=== PATIENT | female | born 1990 | race Caucasian/White ===

== ENCOUNTER → 2017-10-26 | Outpatient (CLI) | payer BC ==
[~2017-10-26] MED LIST: FERR1TAB23; FRRS300 PO; MTR600X PO; OXYC-57 PO; PRENTAB26 PO; VALA500T60 PO
== END | disposition home or self-care (01) ==
LOC: C.LAB1850 17:13
PROVIDERS: ATTEND Obstetrics & Gynecology
DX: Z34.02 Encounter for supervision of normal first pregnancy, second trimester (principal); Z3A.00 Weeks of gestation of pregnancy not specified

== ENCOUNTER → 2018-01-25 | Outpatient (CLI) | payer BC ==
[2018-01-25 16:41] LABS: HEMATOCRIT 30.3 % (37-47); HEMOGLOBIN 10.2 g/dL (12.0-16.0)
== END | disposition home or self-care (01) ==
LOC: C.LAB1850 15:29
PROVIDERS: ATTEND Obstetrics & Gynecology
DX: Z34.03 Encounter for supervision of normal first pregnancy, third trimester (principal); Z3A.00 Weeks of gestation of pregnancy not specified

== ENCOUNTER → 2018-05-27 | Outpatient (CLI) | payer BC ==
[~2018-05-27] MED LIST changes: -FERR1TAB23; -VALA500T60 PO
== END | disposition home or self-care (01) ==
LOC: C.PAPS 13:52
PROVIDERS: ATTEND Obstetrics & Gynecology
DX: Z01.419 Encounter for gynecological examination (general) (routine) without abnormal findings (principal); R87.616 Satisfactory cervical smear but lacking transformation zone

== ENCOUNTER 2022-07-18 11:43 | Inpatient (IN) ==
[2022-07-18] MEDS ORDERED: KETOROLAC TROMETHAMINE 15 MG/ML VIAL IV STA (12:12)
[2022-07-18] MEDS ORDERED: ONDANSETRON INJ 2 MG/ML 2 ML VIAL IV STA ×2 (12:12→13:49)
[2022-07-18] MEDS ORDERED: SODIUM CHLORIDE 0.9% 1000ML 1,000 ML IV ONE (12:12)
[2022-07-18 12:39] LABS: Appearance Urine Clear (Clear); Bacteria Urine Automated Negative (Negative); Bilirubin Urine Negative (Negative); Blood Urine 2+ (Negative); Color Urine Yellow; Epithelial Cell Urine Auto >30 /lpf (0-5); Glucose Urine UA Negative (Negative); Ketones Urine Negative (Negative); Leukocyte Esterase Urine Negative (Negative); Nitrite Urine Negative (Negative); Protein Urine Negative (Negative); RBC Urine Automated 0-4 /hpf (0-4); Specific Gravity Urine 1.007 (1.000-1.030); Urobilinogen Urine Negative (Negative); pH Urine 5.5 (4.5-7.5)
[2022-07-18 12:42] LABS: Basophils # (auto) 0.07 K/uL (0-0.2); Basophils % (auto) 0.9 %; Eosinophils # (auto) 0.12 K/uL (0-0.50); Eosinophils % (auto) 1.6 %; Hematocrit (blood only) 33.7 % (34.1-44.9); Hemoglobin 11.5 g/dl (12.0-16.0); Immature Granulocytes # (auto) 0.02 K/uL (0.00-0.02); Immature Granulocytes % (auto) 0.3 %; Lymphocytes # (auto) 2.51 K/uL (1.2-3.4); Lymphocytes % (auto) 33.7 %; Mean Corpuscular Hemoglobin 30.2 pg (25.0-34.0); Mean Corpuscular Hgb Conc 34.1 g/dL (32.0-36.0); Mean Corpuscular Volume 88.5 fL (80.0-100.0); Mean Platelet Volume 12.2 fL (9.4-12.3); Monocytes # (auto) 0.52 K/uL (0.24-0.82); Neutrophils # (auto) 4.21 K/uL (1.4-6.5); Neutrophils % (auto) 56.5 %; Platelet Count 268 K/uL (130-400); RDW Coefficient of Variation 14.1 % (11.5-14.5); RDW Standard Deviation 45.5 fL (36.4-46.3); Red Blood Count 3.81 M/uL (3.93-5.22); White Blood Count 7.45 K/ul (4.8-10.8)
[2022-07-18 13:14] LABS: Albumin Globulin Ratio 1.6 (0.9-2); Albumin Level 4.4 gm/dl (3.4-5.0); BUN Creatinine Ratio 19.7 (10-20); Bilirubin,Total 0.4 mg/dl (0.2-1.0); Calcium 9.9 mg/dl (8.5-10.1); Creatinine Clr Calc Pharmacy 96.4 ml/min; Est GFR (African American) 128.8 ml/min; Est GFR (Non-African American) 111.1 ml/min; Globulin 2.7 gm/dl (2.5-4.0); Potassium 3.2 mmol/L (3.5-5.1); Total Protein 7.1 gm/dl (6.0-8.3)
--- NOTE | 2022-07-18 13:36 | XRay Report ---
XR abdomen 2V w PA chest HISTORY: 32 years-old Female lower abd pain hx kidney stones and ovarian cyst acute chest and abdomi nal COMPARISON: None TECHNIQUE: PA view the chest with erect and supine views of the abdomen FINDINGS: Cardiomediastinal and hilar silhouettes are within normal limits. No pneumothorax, pleural effusion, airspace consolidation or overt pulmonary edema. A catheter is projected over the left chest and abdo men. Bones appear grossly intact. Nonobstructive bowel gas pattern. No pneumatosis or pneumoperitoneum. Numerous subcentimeter radioden se foci project over the abdomen, likely within the GI tract. Indeterminate 8 mm radiodensity of the right abdomen is is noted projected over the mid to lower lumbar spine. On the supine view this is pr esent at the level of L3, the upright view this is present at the level of L4. IMPRESSION: 1. No acute processes of the chest. 2. Nonobstructive bowel gas pattern. 3. Numerous subcentimeter radiodense foci project of the abdomen likely within the GI tract. 4. Indeterminate 8 mm radiodensity of the right abdomen, also possible within the GI tract. A uretera l calculus is considered less likely. ACT 112: Negative or not required by law. The above report was generated using voice recognition software. It may contain grammatical, syntax o r spelling errors. Electronically signed by: Kody Land M.D. 07/18/2022 1:34 PM
[2022-07-18] MEDS ORDERED: MoRPHine SULFATE 4 MG/ML 1 ML CARP\\VIAL IV STA (13:49)
--- NOTE | 2022-07-18 14:12 | Ultrasound Report ---
US renal/blad retro comp HISTORY: 32 years-old Female lower abd pain hx kidney stones and ovarian cyst acute bilateral flank pain COMPARISON: Pelvic ultrasound of same day TECHNIQUE: Multiple real-time sonographic images of the kidneys and urinary bladder were obtained ass essing grayscale appearance and color flow FINDINGS: The right kidney measures 10.7 cm in length and demonstrates mild hydroureteronephrosis. There is a 9 mm calculus present within the proximal right ureter. Mild associated perinephric and periureteral e laura. 1 cm calculus in the inferior pole right kidney. Left kidney measures 10.1 cm in length and is unremarkable without renal calculi, hydronephrosis or s uspicious mass lesion. Unremarkable urinary bladder. Ureteral jets are not identified. IMPRESSION: 1. Mild right-sided hydroureteronephrosis secondary to an obstructing 9 mm calculus of the proximal r ight ureter. This correlates with the right abdominal calcification described on the radiographs of . 2. Right nephrolithiasis. ACT 112: Negative or not required by law. The above report was generated using voice recognition software. It may contain grammatical, syntax o r spelling errors. Electronically signed by: Kody Land M.D. 07/18/2022 2:09 PM
--- NOTE | 2022-07-18 14:13 | Ultrasound Report ---
US pelvic complete HISTORY: 32 years-old Female lower abd pain hx kidney stones and ovarian cyst acute lower abdominal pain COMPARISON: Renal ultrasound of same day TECHNIQUE: Multiple real-time sonographic images of the deep pelvic structures were obtained transabd ominally assessing grayscale appearance, color and spectral flow FINDINGS: Anteflexed uterus measures 8.2 x 4.0 x 4.6 cm and is unremarkable. Endometrium measures 9 mm in thick ness. No myometrial mass lesion identified. The left ovary measures 2.5 x 1.8 x 1.9 cm. The right ovary measures 3.7 x 2.5 x 1.5 cm. No adnexal m ass identified. Arterial inflow and venous outflow is documented to the bilateral ovaries. No signifi cant free pelvic fluid. IMPRESSION: Unremarkable pelvic ultrasound. ACT 112: Negative or not required by law. The above report was generated using voice recognition software. It may contain grammatical, syntax o r spelling errors. Electronically signed by: Kody Land M.D. 07/18/2022 2:12 PM
--- NOTE | 2022-07-18 15:29 | Emergency Department Note ---
History of Present Illness General Chief Complaint: Abdominal Pain Stated Complaint: SEVERE ABDOMINAL PAIN Time Seen by Provider: 07/18/22 12:06 History of Present Illness Provider Complaint: abdominal pain Onset (ago): 1 hour(s) Location: LLQ and RLQ Severity: moderate Maximum Pain Intensity: 8 Current Pain Intensity: 8 Quality: + stabbing, + aching, + sharp and + dull Relieved By: + nothing Exacerbated By: + nothing Context: + history of similar episodes (History of kidney stones and ovarian cysts); no foreign travel, no possible food poisoning, no sick contacts, no recent antibiotic use, no recent surgery/procedure or no recent injury Associated Symptoms: + nausea and + vomiting; no diarrhea, no fever, no chills, no constipation, no dysuria, no hematemesis, no hematochezia, no melena, no hematuria, no anorexia, no syncope, no headache, no neck pain, no chest pain, no weakness and no numbness Home Medications Medication Instructions Recorded Confirmed Type fluoxetine 20 mg capsule (Prozac) 20 mg PO DAILY 10/24/20 07/18/22 History rizatriptan 10 mg tablet See Rx Instructions PO .COMPLEX #9 01/22/21 07/18/22 Rx tabs Allergies Allergy/AdvReac Type Severity Reaction Status Date / Time No Known Allergies Allergy Verified 07/18/22 13:13 Past Med/Surg History Medical History Migraine headache Surgical History H/O ovarian cystectomy S/P wisdom tooth extraction Family History Father Stroke Hyperlipidemia Nephrolithiasis Grandfather (Paternal) Stroke Grandmother (Maternal) No problems noted. Grandmother (Paternal) Cancer Hyperlipidemia Social History Smoking Status: Never smoker Feels Safe at Home: Yes Review of Systems A total of 10 systems reviewed and were otherwise negative Physical Exam Vital Signs: Vital Signs - 24 hr 07/18/22 11:59 07/18/22 13:40 Temperature 36.9 C Temperature Source Temporal Artery Sc an Pulse Rate 86 Pulse Rate [Left F theodora] 77 Respiratory Rate 18 18 Respiratory Effort / Characteristics Non-Labored Sponta neous Respiratory Depth Normal Blood Pressure 118/69 Blood Pressure [Ri ght Arm] 122/60 Blood Pressure Josselin n 85 Blood Pressure Josselin n [Right Arm] 80 Blood Pressure Pos ition Sitting Pulse Oximetry 97 98 Oxygen Delivery Me thod Room Air Sepsis Recent Feve r Within 48 Hours No Sepsis New/Unexpla ined Change in Men elayne Status N/A Sepsis Action Take n by Nursing No Action Required Physical Exam: Physical Exam GENERAL: She is oriented to person, place, and time. She appears well-developed and well-nourished. She does not appear distressed. HENT: Exam performed. -Head: Normocephalic and atraumatic. -Right Ear: External ear normal. No mastoid tenderness. -Left Ear: External ear normal. No mastoid tenderness. -Mouth/Throat: The oropharynx is clear and moist. No trismus in the jaw. No dental abscesses or uvula swelling. No oropharyngeal exudate or tonsillar absce sses. EYES: Conjunctivae and EOM are normal. Pupils are equal, round, and reactive to light. Right eye exhibits no discharge. Left eye exhibits no discharge. No scleral icterus. NECK: Normal range of motion. Neck supple. No JVD present. No spinous process tenderness present. No carotid bruit present. No rigidity. No tracheal deviation and normal range of motion present. No Brudzinski's sign and no Kernig's sign noted. CV: Normal rate, regular rhythm, normal heart sounds and intact distal pulses. There is no peripheral edema. Palpable radial pulses bue. PULM/CHEST: Effort normal and breath sounds normal. No respiratory distress. No stridor. She has no wheezes. She has no rales. -Chest Wall: She exhibits no tenderness. ABD: The abdomen is soft. Bowel sounds are normal. She has no distension. No mass is present. There is tenderness to palpation of the right lower quadrant and left lower quadrant. There is no rebound, no guarding, no Allen's sign. Rovsig negative MUSC/SKEL: Normal range of motion. There is no peripheral edema, tenderness or deformity. LYMPH: No cervical adenopathy. NEURO: She is alert and oriented to person, place, and time. She has normal strength. No cranial nerve deficit or sensory deficit. Coordination and gait normal. GCS eye subscore is 4. GCS verbal subscore is 5. GCS motor subscore is 6. Cerebellar tests wnl. SKIN: Skin is warm and dry. She is not diaphoretic. PSYCH: She has a normal mood and affect. Behavior is normal. Judgment and thought content normal. Course Course 1206: The patient was evaluated in room C3. A complete history and physical exam was performed Cardiac monitoring: An order was placed for continuous cardiac monitoring. The monitor shows a rate of 80 with sinus rhythm 1430: Vital signs stable. Labs within normal limits. Imaging shows a large 9 mm kidney stone with hydronephrosis. [facility]. Administered Medications Discontinued Medications Sodium Chloride (Nss 1000ml) 1,000 mls @ 999 mls/hr IV .Q1H1M ONE Stop: 07/18/22 13:12 Last Admin: 07/18/22 12:23 Dose: 999 mls/hr Documented By: PATRICIA Ketorolac Tromethamine (Ketorolac Tromethamine 15 Mg/Ml Vial) 15 mg IV NOW STA Stop: 07/18/22 12:13 Last Admin: 07/18/22 12:25 Dose: 15 mg Documented By: PATRICIA Morphine Sulfate (Morphine Sulfate 4 Mg/Ml 1 Ml Carp\Vial) 4 mg IV NOW STA Stop: 07/18/22 13:50 Last Admin: 07/18/22 14:03 Dose: 4 mg Documented By: PATRICIA Ondansetron HCl (Ondansetron Inj 2 Mg/Ml 2 Ml Vial) 4 mg IV NOW STA Stop: 07/18/22 12:13 Last Admin: 07/18/22 12:25 Dose: 4 mg Documented By: PATRICIA Ondansetron HCl (Ondansetron Inj 2 Mg/Ml 2 Ml Vial) 4 mg IV NOW STA Stop: 07/18/22 13:50 Last Admin: 07/18/22 14:03 Dose: 4 mg Documented By: PATRICIA Medical Decision Making Laboratory Data Result diagrams: 07/18/22 12:13 07/18/22 12:13 Lab Results 07/18/22 07/18/22 07/18/22 Range/Units 12:13 12:13 12:13 WBC 7.45 (4.8-10.8) K/ul RBC 3.81 L (3.93-5.22) M/uL Hgb 11.5 L (12.0-16.0) g/dl Hct 33.7 L (34.1-44.9) % MCV 88.5 (80.0-100.0) fL MCH 30.2 (25.0-34.0) pg MCHC 34.1 (32.0-36.0) g/dL RDW Std Deviation 45.5 (36.4-46.3) fL RDW Coeff of Marilee 14.1 (11.5-14.5) % Plt Count 268 (130-400) K/uL MPV 12.2 (9.4-12.3) fL Immature Gran % (Auto) 0.3 % Neut % (Auto) 56.5 % Lymph % (Auto) 33.7 % [place] % (Auto) 7.0 % Eos % (Auto) 1.6 % Baso % (Auto) 0.9 % Neut # (Auto) 4.21 (1.4-6.5) K/uL Lymph # (Auto) 2.51 (1.2-3.4) K/uL [place] # (Auto) 0.52 (0.24-0.82) K/uL Eos # (Auto) 0.12 (0-0.50) K/uL Baso # (Auto) 0.07 (0-0.2) K/uL Immature Gran # (Auto) 0.02 (0.00-0.02) K/uL Sodium 135 L (136-145) mmol/L Potassium 3.2 L (3.5-5.1) mmol/L Chloride 103 (98-107) mmol/L Carbon Dioxide 24 (21-32) mmol/L Anion Gap 8 (3-11) BUN 14 (6-23) mg/dl Creatinine 0.71 (0.6-1.2) mg/dl Est Cr Clr Drug Dosing 96.4 ml/min Est GFR ( Amer) 128.8 ml/min Est GFR (Non-Af Amer) 111.1 ml/min BUN/Creatinine Ratio 19.7 (10-20) Glucose 90 (70-99(Fasting)) mg/dl Calcium 9.9 (8.5-10.1) mg/dl Total Bilirubin 0.4 (0.2-1.0) mg/dl AST 14 (13-39) U/L ALT 11 (7-52) U/L Alkaline Phosphatase 48 (34-104) U/L Total Protein 7.1 (6.0-8.3) gm/dl Albumin 4.4 (3.4-5.0) gm/dl Globulin 2.7 (2.5-4.0) gm/dl Albumin/Globulin Ratio 1.6 (0.9-2) Lipase 32 (11-82) U/L Urine Color Yellow Urine Appearance Clear (Clear) Urine pH 5.5 (4.5-7.5) Ur Specific [place] 1.007 (1.000-1.030) Urine Protein Negative (Negative) Urine Glucose (UA) Negative (Negative) Urine Ketones Negative (Negative) Urine Blood 2+ H (Negative) Urine Nitrite Negative (Negative) Urine Bilirubin Negative (Negative) Urine Urobilinogen Negative (Negative) Ur Leukocyte Esterase Negative (Negative) Urine WBC (Auto) 1-5 (0-5) /hpf Urine RBC (Auto) 0-4 (0-4) /hpf U Hyaline Cast (Auto) 1-5 (0-5) /lpf U Epithel Cells (Auto) >30 H (0-5) /lpf Urine Bacteria (Auto) Negative (Negative) POC Ur Test (NEG) 07/18/22 Range/Units 12:13 WBC (4.8-10.8) K/ul RBC (3.93-5.22) M/uL Hgb (12.0-16.0) g/dl Hct (34.1-44.9) % MCV (80.0-100.0) fL MCH (25.0-34.0) pg MCHC (32.0-36.0) g/dL RDW Std Deviation (36.4-46.3) fL RDW Coeff of Mar[place] (11.5-14.5) % Plt Count (130-400) K/uL MPV (9.4-12.3) fL Immature Gran % (Auto) % Neut % (Auto) % Lymph % (Auto) % [place] % (Auto) % Eos % (Auto) % Baso % (Auto) % Neut # (Auto) (1.4-6.5) K/uL Lymph # (Auto) (1.2-3.4) K/uL [place] # (Auto) (0.24-0.82) K/uL Eos # (Auto) (0-0.50) K/uL Baso # (Auto) (0-0.2) K/uL Immature Gran # (Auto) (0.00-0.02) K/uL Sodium (136-145) mmol/L Potassium (3.5-5.1) mmol/L Chloride (98-107) mmol/L Carbon Dioxide (21-32) mmol/L Anion Gap (3-11) BUN (6-23) mg/dl Creatinine (0.6-1.2) mg/dl Est Cr Clr Drug Dosing ml/min Est GFR ( Amer) ml/min Est GFR (Non-Af Amer) ml/min BUN/Creatinine Ratio (10-20) Glucose (70-99(Fasting)) mg/dl Calcium (8.5-10.1) mg/dl Total Bilirubin (0.2-1.0) mg/dl AST (13-39) U/L ALT (7-52) U/L Alkaline Phosphatase (34-104) U/L Total Protein (6.0-8.3) gm/dl Albumin (3.4-5.0) gm/dl Globulin (2.5-4.0) gm/dl Albumin/Globulin Ratio (0.9-2) Lipase (11-82) U/L Urine Color Urine Appearance (Clear) Urine pH (4.5-7.5) Ur Specific [place] (1.000-1.030) Urine Protein (Negative) Urine Glucose (UA) (Negative) Urine Ketones (Negative) Urine Blood (Negative) Urine Nitrite (Negative) Urine Bilirubin (Negative) Urine Urobilinogen (Negative) Ur Leukocyte Esterase (Negative) Urine WBC (Auto) (0-5) /hpf Urine RBC (Auto) (0-4) /hpf U Hyaline Cast (Auto) (0-5) /lpf U Epithel Cells (Auto) (0-5) /lpf Urine Bacteria (Auto) (Negative) POC Ur Test NEG (NEG) MDM Narrative Vital signs stable. Labs within normal limits. Imaging shows a large 9 mm ki dney stone with hydronephrosis. Patient will be admitted to the [facility] hospitalist team for pain control and urology evaluation. Impression & Plan Hydronephrosis with renal and ureteral calculous obstruction Discharge Plan Visit Data Chief Complaint: Abdominal Pain Stated Complaint: SEVERE ABDOMINAL PAIN ED Provider: Evangelista Cottrell Discharge Problem: Hydronephrosis with renal and ureteral calculous obstruction Patient Disposition: Being Evaluated by Hospitalist Forms Stand Alone Forms: [facility] Prescriptions Prescriptions: No Action rizatriptan 10 mg tablet See Rx Instructions PO .COMPLEX Qty: 9 5RF Rx Instructions: take 1 tab at onset of headache; if no relief may repeat 1 tab after at least 2 hrs; max = 3 tabs/24 hr PO fluoxetine [Prozac] 20 mg capsule 20 mg PO DAILY Referrals Referrals: Allegra Jackson MD [Primary Care Provider] -
--- NOTE | 2022-07-18 16:04 | History & Physical Report ---
Date of Service July 18, 2022 Assessment & Plan (1) Renal calculus: (2) Hydroureteronephrosis: Plan: 32 yo Female with PMH of kidney stone that required lithotripsy in the past presented on admission with severe pain located in the right lower abdomen that radiated across/above the suprapubic area Renal U/S showed mild right-sided hydroureteronephrosis secondary to an obstructing 9 mm calculus of the proximal right ureter. Right nephrolithiasis. Creatinine and WBC within normal limit UA showed no sign for UTI Received IVF and Toradol in the ER Continue pain control with toradol and IVF Will add flomax Urology consult ( I notified the consultant technology urology about the consult) Will make NPO after midnight Hypokalemia Possible related to vomiting Potassium 3.2 on admission Will replaced Potassium Continue monitor BMP Migraine headache if headache occurs, will resume the Rizatriptan 10mg prn stable Anxiety/Depression Continue fluoxetine 20mg daily Stable DVT px SCD for now (possible urology procedure tomorrow ) Code status Full code History of Present Illness Primary Care Provider: Allegra Jackson MD 32 yo Female with PMH of migraine, kidney stone required procedure in the past, anxiety and depression present to ER with severe pain located in the right lower abdomen that radiated across and above the suprapubic area. Pt said that she was in her normal state when she developed severe abdominal pain around 1 pm. She said that she also have tenderness in the lower right border of her back. She said that she felt nauseated and vomiting today. She described the pain as a cramping feeling, constant and 6/10 intensity. She said that she received morphine in the ER that did not provide any relief, but the IV toradol helped. She said that she had kidney stone in the past that required lithotripsy in the past. Denies any fever, chills, diarrhea, dysuria, hematuria, palpitation, SOB and chest pain. Allergies Allergy/AdvReac Type Severity Reaction Status Date / Time No Known Allergies Allergy Verified 07/18/22 13:13 Home Medications Medication Instructions Recorded Confirmed Type fluoxetine 20 mg capsule (Prozac) 20 mg PO DAILY 10/24/20 07/18/22 History rizatriptan 10 mg tablet See Rx Instructions PO .COMPLEX #9 01/22/21 07/18/22 Rx tabs Past Med/Surg History Medical History Migraine headache Surgical History H/O ovarian cystectomy S/P wisdom tooth extraction Family History Father Stroke Hyperlipidemia Nephrolithiasis Grandfather (Paternal) Stroke Grandmother (Maternal) No problems noted. Grandmother (Paternal) Cancer Hyperlipidemia Social History Smoking Status: Never smoker Feels Safe at Home: Yes Review of Systems Review of Systems: All systems reviewed & are unremarkable except as noted in HPI & below Physical Exam Physical Exam: General- No acute distress Head- atraumatic Eyes- PERRL, EOMI, ENT- oropharynx clear Neck- supple, no JVD Lungs- clear to auscultation Heart- regular rhythm; no murmur Abdomen/Pelvis- + RL abdominal pain/ hypogastric pain, +R flank pain with palpation Extremities- no calf tenderness Neuro- alert, oriented x 3; PERRL, EOMI; no facial palsy; no dysarthria Skin- warm & dry Results & Data Results & Data ([facility]) Vital Signs (Past 12 Hours) Vital Signs Temp Pulse Pulse Resp BP BP Pulse Ox 07/18/22 13:40 77 18 122/60 98 07/18/22 11:59 36.9 C 86 18 118/69 97 O2 Del Method 07/18/22 13:40 07/18/22 11:59 Room Air Diagnostic Findings Laboratory Results WBC 7.45 K/ul (4.8-10.8) 07/18/22 12:13 RBC 3.81 M/uL (3.93-5.22) L 07/18/22 12:13 Hgb 11.5 g/dl (12.0-16.0) L 07/18/22 12:13 Hct 33.7 % (34.1-44.9) L 07/18/22 12:13 MCV 88.5 fL (80.0-100.0) 07/18/22 12:13 MCH 30.2 pg (25.0-34.0) 07/18/22 12:13 MCHC 34.1 g/dL (32.0-36.0) 07/18/22 12:13 RDW Std Deviation 45.5 fL (36.4-46.3) 07/18/22 12:13 RDW Coeff of Marilee 14.1 % (11.5-14.5) 07/18/22 12:13 Plt Count 268 K/uL (130-400) 07/18/22 12:13 MPV 12.2 fL (9.4-12.3) 07/18/22 12:13 Immature Gran % (Auto) 0.3 % 07/18/22 12:13 Neut % (Auto) 56.5 % 07/18/22 12:13 Lymph % (Auto) 33.7 % 07/18/22 12:13 Garden % (Auto) 7.0 % 07/18/22 12:13 Eos % (Auto) 1.6 % 07/18/22 12:13 Baso % (Auto) 0.9 % 07/18/22 12:13 Neut # (Auto) 4.21 K/uL (1.4-6.5) 07/18/22 12:13 Lymph # (Auto) 2.51 K/uL (1.2-3.4) 07/18/22 12:13 Garden # (Auto) 0.52 K/uL (0.24-0.82) 07/18/22 12:13 Eos # (Auto) 0.12 K/uL (0-0.50) 07/18/22 12:13 Baso # (Auto) 0.07 K/uL (0-0.2) 07/18/22 12:13 Immature Gran # (Auto) 0.02 K/uL (0.00-0.02) 07/18/22 12:13 Sodium 135 mmol/L (136-145) L 07/18/22 12:13 Potassium 3.2 mmol/L (3.5-5.1) L 07/18/22 12:13 Chloride 103 mmol/L (98-107) 07/18/22 12:13 Carbon Dioxide 24 mmol/L (21-32) 07/18/22 12:13 Anion Gap 8 (3-11) 07/18/22 12:13 BUN 14 mg/dl (6-23) 07/18/22 12:13 Creatinine 0.71 mg/dl (0.6-1.2) 07/18/22 12:13 Est Cr Clr Drug Dosing 96.4 ml/min 07/18/22 12:13 Est GFR ( Amer) 128.8 ml/min 07/18/22 12:13 Est GFR (Non-Af Amer) 111.1 ml/min 07/18/22 12:13 BUN/Creatinine Ratio 19.7 (10-20) 07/18/22 12:13 Glucose 90 mg/dl (70-99(Fasting)) 07/18/22 12:13 Calcium 9.9 mg/dl (8.5-10.1) 07/18/22 12:13 Total Bilirubin 0.4 mg/dl (0.2-1.0) 07/18/22 12:13 AST 14 U/L (13-39) 07/18/22 12:13 ALT 11 U/L (7-52) 07/18/22 12:13 Alkaline Phosphatase 48 U/L (34-104) 07/18/22 12:13 Total Protein 7.1 gm/dl (6.0-8.3) 07/18/22 12:13 Albumin 4.4 gm/dl (3.4-5.0) 07/18/22 12:13 Globulin 2.7 gm/dl (2.5-4.0) 07/18/22 12:13 Albumin/Globulin Ratio 1.6 (0.9-2) 07/18/22 12:13 Lipase 32 U/L (11-82) 07/18/22 12:13 Urine Color Yellow 07/18/22 12:13 Urine Appearance Clear (Clear) 07/18/22 12:13 Urine pH 5.5 (4.5-7.5) 07/18/22 12:13 Ur Specific [place] 1.007 (1.000-1.030) 07/18/22 12:13 Urine Protein Negative (Negative) 07/18/22 12:13 Urine Glucose (UA) Negative (Negative) 07/18/22 12:13 Urine Ketones Negative (Negative) 07/18/22 12:13 Urine Blood 2+ (Negative) H 07/18/22 12:13 Urine Nitrite Negative (Negative) 07/18/22 12:13 Urine Bilirubin Negative (Negative) 07/18/22 12:13 Urine Urobilinogen Negative (Negative) 07/18/22 12:13 Ur Leukocyte Esterase Negative (Negative) 07/18/22 12:13 Urine WBC (Auto) 1-5 /hpf (0-5) 07/18/22 12:13 Urine RBC (Auto) 0-4 /hpf (0-4) 07/18/22 12:13 U Hyaline Cast (Auto) 1-5 /lpf (0-5) 07/18/22 12:13 U Epithel Cells (Auto) >30 /lpf (0-5) H 07/18/22 12:13 Urine Bacteria (Auto) Negative (Negative) 07/18/22 12:13 POC Ur Test NEG (NEG) 07/18/22 12:13 SARS-CoV-2, RNA, NAAT NEGATIVE (NEGATIVE) 07/18/22 15:00 Impressions Chest/Abdomen X-ray 07/18/22 12:12 XR abdomen 2V w PA chest HISTORY: 32 years-old Female lower abd pain hx kidney stones and ovarian cyst acute chest and abdominal COMPARISON: None TECHNIQUE: PA view the chest with erect and supine views of the abdomen FINDINGS: Cardiomediastinal and hilar silhouettes are within normal limits. No pneumothorax, pleural effusion, airspace consolidation or overt pulmonary edema. A catheter is projected over the left chest and abdomen. Bones appear grossly intact. Nonobstructive bowel gas pattern. No pneumatosis or pneumoperitoneum. Numerous subcentimeter radiodense foci project over the abdomen, likely within the GI tract. Indeterminate 8 mm radiodensity of the right abdomen is is noted projected over the mid to lower lumbar spine. On the supine view this is present at the level of L3, the upright view this is present at the level of L4. IMPRESSION: 1. No acute processes of the chest. 2. Nonobstructive bowel gas pattern. 3. Numerous subcentimeter radiodense foci project of the abdomen likely within the GI tract. 4. Indeterminate 8 mm radiodensity of the right abdomen, also possible within the GI tract. A ureteral calculus is considered less likely. ACT 112: Negative or not required by law. The above report was generated using voice recognition software. It may contain grammatical, syntax or spelling errors. Electronically signed by: Kody Land M.D. 07/18/2022 1:34 PM Pelvis Ultrasound 07/18/22 12:12 US pelvic complete HISTORY: 32 years-old Female lower abd pain hx kidney stones and ovarian cyst acute lower abdominal pain COMPARISON: Renal ultrasound of same day TECHNIQUE: Multiple real-time sonographic images of the deep pelvic structures were obtained transabdominally assessing grayscale appearance, color and spectral flow FINDINGS: Anteflexed uterus measures 8.2 x 4.0 x 4.6 cm and is unremarkable. Endometrium measures 9 mm in thickness. No myometrial mass lesion identified. The left ovary measures 2.5 x 1.8 x 1.9 cm. The right ovary measures 3.7 x 2.5 x 1.5 cm. No adnexal mass identified. Arterial inflow and venous outflow is documented to the bilateral ovaries. No significant free pelvic fluid. IMPRESSION: Unremarkable pelvic ultrasound. ACT 112: Negative or not required by law. The above report was generated using voice recognition software. It may contain grammatical, syntax or spelling errors. Electronically signed by: Kody Land M.D. 07/18/2022 2:12 PM Renal Ultrasound 07/18/22 12:12 US renal/blad retro comp HISTORY: 32 years-old Female lower abd pain hx kidney stones and ovarian cyst acute bilateral flank pain COMPARISON: Pelvic ultrasound of same day TECHNIQUE: Multiple real-time sonographic images of the kidneys and urinary bladder were obtained assessing grayscale appearance and color flow FINDINGS: The right kidney measures 10.7 cm in length and demonstrates mild hydroureteronephrosis. There is a 9 mm calculus present within the proximal right ureter. Mild associated perinephric and periureteral edema. 1 cm calculus in the inferior pole right kidney. Left kidney measures 10.1 cm in length and is unremarkable without renal calculi, hydronephrosis or suspicious mass lesion. Unremarkable urinary bladder. Ureteral jets are not identified. IMPRESSION: 1. Mild right-sided hydroureteronephrosis secondary to an obstructing 9 mm calculus of the proximal right ureter. This correlates with the right abdominal calcification described on the radiographs of same day. 2. Right nephrolithiasis. ACT 112: Negative or not required by law. The above report was generated using voice recognition software. It may contain grammatical, syntax or spelling errors. Electronically signed by: Kody Land M.D. 07/18/2022 2:09 PM
[2022-07-18] MEDS ORDERED: ONDANSETRON INJ 2 MG/ML 2 ML VIAL IV PRN (16:40)
[2022-07-18] MEDS ORDERED: ACETAMINOPHEN 325 MG TAB PO PRN (16:40)
[2022-07-18] MEDS: SODIUM CHLORIDE 0.9% 1000ML 1,000 ML IV SCH (16:54)
[2022-07-18] MEDS: POTASSIUM CHLORIDE / WTR 10 MEQ/100 ML PLCT IV SCH ×2 (16:58→17:52)
[2022-07-18] MEDS ORDERED: PROMETHAZINE HCL 12.5 MG in SODIUM CHLORIDE 0.9% 50 ML IV STA (17:11)
[2022-07-18] MEDS: KETOROLAC TROMETHAMINE 15 MG/ML VIAL IV PRN (17:15)
[2022-07-18] MEDS: TAMSULOSIN HCL 0.4 MG CAP PO SCH (20:31)
[2022-07-19] MEDS: SODIUM CHLORIDE 0.9% 1000ML 1,000 ML IV SCH ×3 (00:40→17:40)
[2022-07-19 07:03] LABS: Hematocrit (blood only) 31.7 % (34.1-44.9); Hemoglobin 10.4 g/dl (12.0-16.0); Mean Corpuscular Hgb Conc 32.8 g/dL (32.0-36.0); Mean Corpuscular Volume 91.4 fL (80.0-100.0); Mean Platelet Volume 12.4 fL (9.4-12.3); Platelet Count 205 K/uL (130-400); RDW Coefficient of Variation 14.4 % (11.5-14.5); RDW Standard Deviation 48.2 fL (36.4-46.3); Red Blood Count 3.47 M/uL (3.93-5.22); White Blood Count 4.88 K/ul (4.8-10.8)
[2022-07-19 07:35] LABS: Potassium 3.7 mmol/L (3.5-5.1)
[2022-07-19 07:41] LABS: BUN Creatinine Ratio 12.3 (10-20); Creatinine Clr Calc Pharmacy 105.3 ml/min; Est GFR (African American) 134.3 ml/min; Est GFR (Non-African American) 115.8 ml/min
[2022-07-19] MEDS: FLUoxetine HCL 20 MG CAP PO SCH (08:14)
--- NOTE | 2022-07-19 09:05 | Urology Consultation ---
Date of Consultation July 19, 2022 Assessment & Plan (1) Hydronephrosis with renal and ureteral calculous obstruction: We reviewed that based on her imaging and her story she likely has a right-sided ureteral stone. There is no evidence for infection at this point so if she wanted to try to pass the stone spontaneously it would be reasonable, however the stone is large enough that I think there is a low chance that she would be successful. We discussed the alternative of cystoscopy with right ureteral stent placement to address the pain. We reviewed the risks and benefits of the surgery, specifically the risks of bleeding, infection, injury to the urinary tract, inability to place a stent, need for additional procedures. She expressed understanding and would like to proceed with right ureteral stent placement. History of Present Illness Reason for Consultation: Right ureteral stone Attending Physician: Margarita Smith, History of Present Illness This is a 32-year-old female with prior history of nephrolithiasis. She has undergone some sort of surgical stone management in the past but she does not recall what. She presented to the emergency department on 07/18/2022 with acute onset of right-sided flank pain, associated with nausea and vomiting. Pain was controlled in the emergency department with Toradol and morphine. Work-up in the emergency department was notable for normal WBC (7.45), normal creatinine (0.71). Urinalysis was not suggestive of infection. A KUB was performed which independently reviewed. There was a 8 mm density in the right abdomen which appeared to be distinct from nearby bowel. Renal ultrasound was also performed. I reviewed these images as well. There is right-sided hydronephrosis as well as a shadowing hyperechoic area consistent with a ureteral stone. Allergies Allergy/AdvReac Type Severity Reaction Status Date / Time No Known Allergies Allergy Verified 07/18/22 13:13 Home Medications Medication Instructions Recorded Confirmed Type fluoxetine 20 mg capsule (Prozac) 20 mg PO DAILY 10/24/20 07/18/22 History rizatriptan 10 mg tablet See Rx Instructions PO .COMPLEX #9 01/22/21 07/18/22 Rx tabs Patient History Medical History Migraine headache Surgical History H/O ovarian cystectomy S/P wisdom tooth extraction Family History Father Stroke Hyperlipidemia Nephrolithiasis Grandfather (Paternal) Stroke Grandmother (Maternal) No problems noted. Grandmother (Paternal) Cancer Hyperlipidemia Social History Smoking Status: Never smoker Hx Alcohol Use: No Hx Substance Use: No Preferred Language: Ethiopian Communication Ability: Effective Platen Builder Up Required: No Beliefs That Will Affect Care: None Current Living Situation: Alone Other Information That Helps Us Care for You: No Feels Safe at Home: Yes Safety Concerns: Feels Safe At This Time Assistive Devices: Glasses Review of Systems Review of Systems: 14 point review of systems negative except for otherwise indicated. Physical Exam Constitutional: well developed and well nourished; no acute distress Eyes: + anicteric sclerae; pupils not irregular Respiratory: normal respiratory effort; no respiratory distress, does not use accessory muscles and no cough Cardiovascular: well perfused Gastrointestinal (Abdomen): Inspection/Auscultation: abdomen normal to inspection; abdomen not distended Musculoskeletal: Extremities: extremities normal to inspection Skin: normal turgor; no rashes and no lesions Neurologic: moves all extremities and awake Psychiatric: Orientation: alert and oriented x 3 Results & Data ([facility]) Vital Signs (Past 12 Hours) Vital Signs Temp Pulse Resp BP Pulse Ox O2 Del Method 07/19/22 07:49 36.7 C 68 18 93/58 L 95 Room Air 07/19/22 00:53 36.7 C 66 16 94/55 L 97 Room Air PG Care Time/CCT Total # of Minutes Spent Total Time Spent with Patient: Total time spent is greater than 50% in coordination of care (as documented) at patient's floor/unit and/or counseling patient: Coding Level of Care Code 04404 Inpt Consult Level 4 Diagnoses Hydronephrosis with renal and ureteral calculous obstruction N13.2
--- NOTE | 2022-07-19 09:17 | Anesthesiology Consultation ---
Date of Service July 19, 2022 Assessment & Plan (1) Encounter for pre-operative examination: Chart Review Chart Review: Acceptable Risk for Surgery and Patient NOT seen in Pre Admission Testing Consults Requested none History Surgery Operation Date: 07/19/22 10:00 Proposed Procedures p Cystoscopy - Pelon Crawley MD s Ureteral Stent Insertion/Removal(Right) - Pelon Crawley MD Height/Weight Height: 5 ft 4 in Weight: 61.9 kg Allergies Allergy/AdvReac Type Severity Reaction Status Date / Time No Known Allergies Allergy Verified 07/18/22 13:13 Medications Home Medications Medication Instructions Recorded Confirmed Last Taken fluoxetine 20 mg capsule (Prozac) 20 mg PO DAILY 10/24/20 07/18/22 07/17/22 rizatriptan 10 mg tablet See Rx Instructions PO .COMPLEX #9 01/22/21 07/18/22 Unknown tabs Active Medications Generic Name Dose Route Start Last Admin Trade Name Freq PRN Reason Stop Dose Admin Acetaminophen 650 mg 07/18/22 16:40 07/19/22 03:06 Acetaminophen 325 Mg Tab PO 08/17/22 16:39 650 mg Q6H PRN Administration Mild Pain Fluoxetine HCl 20 mg 07/19/22 09:00 07/19/22 08:14 Fluoxetine Hcl 20 Mg Cap PO 08/18/22 08:59 20 mg DAILY ERENDIRA Administration Sodium Chloride 1,000 mls @ 125 mls/hr 07/18/22 16:40 07/19/22 08:11 Nss 1000ml IV 08/17/22 16:39 125 mls/hr .Q8H ERENDIRA Administration Ketorolac Tromethamine 15 mg 07/18/22 16:40 07/18/22 17:15 Ketorolac Tromethamine 15 Mg/Ml Vial IV 07/23/22 16:39 15 mg Q6H PRN Administration moderate to severe Pain Tamsulosin HCl 0.4 mg 07/18/22 21:00 07/18/22 20:31 Tamsulosin Hcl 0.4 Mg Cap PO 08/17/22 20:59 0.4 mg HS ERENDIRA Administration Past Medical History Medical History Migraine headache Past Family History Family History Father Stroke Hyperlipidemia Nephrolithiasis Grandfather (Paternal) Stroke Grandmother (Maternal) No problems noted. Grandmother (Paternal) Cancer Hyperlipidemia Past Surgical History Surgical History H/O ovarian cystectomy S/P wisdom tooth extraction Social History Smoking Status: Never smoker Hx Alcohol Use: No Hx Substance Use: No substance use type: does not use Physical Exam Vital Signs Last Vital Signs Temp 98.1 F 07/19/22 07:49 Pulse 68 07/19/22 07:49 Resp 18 07/19/22 07:49 BP 93/58 L 07/19/22 07:49 Pulse Ox 95 07/19/22 07:49 O2 Del Method 07/19/22 07:49 Testing Laboratory Results 07/19/22 06:20 07/19/22 06:20 Urine Color Yellow 07/18/22 12:13 Urine Appearance Clear (Clear) 07/18/22 12:13 Urine pH 5.5 (4.5-7.5) 07/18/22 12:13 Ur Specific [place] 1.007 (1.000-1.030) 07/18/22 12:13 Urine Protein Negative (Negative) 07/18/22 12:13 Urine Glucose (UA) Negative (Negative) 07/18/22 12:13 Urine Ketones Negative (Negative) 07/18/22 12:13 Urine Nitrite Negative (Negative) 07/18/22 12:13 Ur Leukocyte Esterase Negative (Negative) 07/18/22 12:13 Urine WBC (Auto) 1-5 /hpf (0-5) 07/18/22 12:13 Urine RBC (Auto) 0-4 /hpf (0-4) 07/18/22 12:13 U Hyaline Cast (Auto) 1-5 /lpf (0-5) 07/18/22 12:13 U Epithel Cells (Auto) >30 /lpf (0-5) H 07/18/22 12:13 Urine Bacteria (Auto) Negative (Negative) 07/18/22 12:13 07/18/22 12:13 POC Ur Test NEG
[2022-07-19] MEDS ORDERED: LIDOCAINE 2% MPF LOCAL 5 ML VIAL INFIL ONE (11:16)
[2022-07-19] MEDS ORDERED: MIDAZOLAM HCL 1 MG/ML 2ML VIAL ONE (11:16)
[2022-07-19] MEDS ORDERED: ONDANSETRON INJ 2 MG/ML 2 ML VIAL ONE (11:16)
[2022-07-19] MEDS ORDERED: fentaNYL citrate 100 MCG/2 ML VIAL ONE (11:16)
[2022-07-19] MEDS ORDERED: PROPOFOL IV EMULSION 10 MG/ML 20 ML VIAL IV ONE (11:16)
[2022-07-19] MEDS ORDERED: ATROPINE SULFATE 0.1 MG/ML 10ML SYR IV PRN (11:25)
[2022-07-19] MEDS ORDERED: fentaNYL citrate 100 MCG/2 ML VIAL IV PRN (11:25)
[2022-07-19] MEDS ORDERED: ONDANSETRON INJ 2 MG/ML 2 ML VIAL IV PRN (11:25)
[2022-07-19] MEDS ORDERED: ePHEDrine sulfate 50 MG/ML AMP IV PRN (11:25)
[2022-07-19] MEDS ORDERED: ceFAZolin 330 MG/ML 1 GM VIAL ONE (11:39)
[2022-07-19] MEDS ORDERED: KETOROLAC 30 MG/ML VIAL ONE (11:40)
[2022-07-19] MEDS ORDERED: ceFAZolin 2000MG 2,000 MG/15 ML SYR IV ONE (11:49)
[2022-07-19] MEDS ORDERED: DIATRIZOATE MEGLUMINE 30% 100ML VIAL INSTIL ONE (11:54)
--- NOTE | 2022-07-19 11:57 | Operative Report ---
PG Post Operative Report Pre & Post Diagnosis Operation Date: 07/19/22 10:00 Pre-Op Diagnosis: Right ureteral stone Post-Op Diagnosis: Right ureteral stone I identified the patient and participated in the time-out.: Yes Procedure Operation Date: 07/19/22 10:00 Actual Procedures s Cystoscopy, retrograde pyelogram, ureteral stent placement on right side(Rig ht) - Pelon Crawley MD Surgeon Pelon Crawley MD [employer] None Estimated Blood Loss 0 Findings Consistent with Post-Op Diagnosis Specimens None Drains 6 Thai by 24 cm double-J ureteral stent in the right ureter Anesthesia Type MAC Complications none Disposition Accompanied Patient To Recovery: Yes Disposition: Recovery Room Indications This is a 32-year-old female with history of nephrolithiasis. She presented to the emergency department on 07/18/2022 with flank pain consistent with prior stone events. KUB and renal ultrasound suggested 8 to 9 mm stone in the right ureter with associated hydronephrosis. She is being brought to the OR today for ureteral stent placement due to ongoing pain. Description of Procedure The patient was identified in the holding area and informed consent was confirmed. She was marked on the right side, then were taken to the operating room where anesthesia was initiated. She was placed in the dorsal lithotomy position with all pressure points appropriately padded. She was prepped and draped in the usual sterile fashion and a preoperative timeout was performed. A well-lubricated cystoscope was inserted per urethra and panendoscopy was performed. The urethra was normal in appearance. The bladder was of normal size with ureteral orifices in orthotopic position. The right ureteral orifice was identified and cannulated with a 5 Thai open- ended catheter. A retrograde pyelogram was performed demonstrating the ureter was normal in course and caliber. There was mild hydronephrosis of the right kidney. A 0.038" ZIPwire was advanced to the level of the kidney under fluoroscopic guidance. Over the wire, a 6 Thai x 24 centimeter double-J ureteral stent was advanced. When the wire was removed, the proximal curl was visualized in the kidney with x-ray, and the distal curl visualized in the bladder with the cystoscope. At this point the bladder was drained and all instrumentation was removed. The patient was then awakened from anesthesia and was brought to the PACU in stable condition. I attest to the content of the Intraoperative Record and any orders documented therein. Any exceptions are noted below.
--- NOTE | 2022-07-19 12:17 | Anesthesiology Progress Note ---
Date of Service July 19, 2022 Anesthesia Post Procedure Vital Signs Vital Signs: Temp Pulse Resp BP Pulse Ox O2 Del Method 07/19/22 07:49 98.1 F 68 18 93/58 L 95 Room Air 07/19/22 00:53 98.1 F 66 16 94/55 L 97 Room Air 07/18/22 16:42 98.4 F 64 18 107/65 100 Room Air 07/18/22 15:58 62 16 109/68 98 Room Air 07/18/22 13:40 77 18 122/60 98 Pain Intensity Bilateral Pelvic: Pain Intensity: 6 Transfer of Care Handoff Completed per policy Notes Mental Status: alert / awake / arousable and participated in evaluation Patient Amnestic to Procedure: Yes Nausea / Vomiting: adequately controlled Pain: adequately controlled Airway Patency, RR, SpO2: stable & adequate BP & HR: stable & adequate Hydration State: stable & adequate Anesthetic Complications: no major complications apparent and Pt Satisfied with anesthetic care
--- NOTE | 2022-07-19 12:26 | Fluoroscopy Report ---
INTRAOPERATIVE RADIOGRAPH CLINICAL HISTORY: Right ureteral stent placement. Fluoroscopy time: 7 seconds. FINDINGS: A single spot fluoroscopic image of the right upper quadrant is correlated with renal ultra sound dated 07/18/2022. Contrast within the right pelvis shows mild fullness of the collecting system. The proximal end of a right ureteral stent is in appropriate position. IMPRESSION: Intraoperative image from a right ureteral stent placement procedure as above. Electronically signed by: Kimani Mcdonnell M.D. 07/19/2022 12:24 PM
[2022-07-19] MEDS ORDERED: KETOROLAC TROMETHAMINE 15 MG/ML VIAL IV ONE (13:03)
[2022-07-19] MEDS ORDERED: PHENAZOPYRIDINE HCL 200 MG TAB PO STA (13:03)
--- NOTE | 2022-07-19 14:41 | Hospitalist Progress Note ---
Date of Service July 19, 2022 Assessment & Plan (1) Hydronephrosis with renal and ureteral calculous obstruction: Plan: Patient with a history of kidney stone that required lithotripsy in the past. She has now right-sided hydroureteronephrosis secondary to an obstructing 9 mm calculus in the proximal right ureter along with right nephrolithiasis. Urology was consulted and stented her right ureter this morning Postoperatively she is experiencing significant suprapubic burning Will give trial of Pyridium and 1 dose of Toradol now If not improved will add BNO suppository as needed Discussed with bedside RN Continue Flomax daily Plan to monitor in the hospital until symptoms are improved. (2) Hypokalemia: Plan: Potassium has been repleted and today's level is 3.7. No further work-up or repletion needed. (3) Migraine headache: Plan: Rizatriptan as needed per home regimen (4) Depression: Plan: Chronic, stable, continue home fluoxetine. (5) DVT prophylaxis: Plan: SCDs/ambulation Full code Disposition to home in 1 to 2 days pending improvement in pain Margarita Smith DO [facility] Hospitalist Admission and Anticipated Discharge Date Admission Date: July 18, 2022 Subjective 32-year-old female presented with ureteral calculus with obstruction and hy dronephrosis. No evidence of infection She went for ureteral stent today on the right side. She has been placed on tamsulosin overnight. Postoperatively she is experiencing excruciating pain in her suprapubic area that she describes as a burning. IV fluids are running No flank pain Discussed with her mom the postoperative plan tentatively Plan to keep her overnight until pain-free consistently Review of Systems Review of Systems: All systems reviewed negative except as indicated above. Physical Exam Physical Exam: CONSTITUTIONAL: WNWD, vitals as above, generally appears in moderate distress 2/2 pain, eyes closed, lying supine in bed. EYES: normal conjunctivae, no scleral icterus ENT: external ear and nose normal, MMM NECK: trachea midline RESPIRATORY: clear to auscultation bilaterally, no crackles, rales or wheezes, normal respiratory effort CARDIOVASCULAR: regular rate and rhythm, S1 and 2 heard without murmurs, gallops or rubs, no JVD, no peripheral edema CHEST: inspection of chest was normal GASTROINTESTINAL: soft, nontender, ND, no guarding MUSCULOSKELETAL: strength 5/5 throughout, head is normocephalic and atraumatic SKIN: warm and dry NEUROLOGIC: CN 2-12 grossly intact, no sensory deficit, normal cognition, normal speech, no tremor PSYCHIATRIC: alert cooperative and oriented to person, place and time. Euthymic mood, makes good eye contact, language grossly intact, recent and remote memory grossly intact. Results & Data Results & Data ([facility]) Vital Signs (Past 12 Hours) Vital Signs Temp Pulse Resp BP Pulse Ox O2 Del Method 07/19/22 13:42 36.8 C 56 L 16 93/59 L 97 Room Air 07/19/22 13:03 36.5 C 61 16 102/65 97 Room Air 07/19/22 12:20 36.5 C 60 H 104/69 97 Room Air 07/19/22 12:38 36.6 C 53 L 16 101/65 97 Room Air 07/19/22 12:10 58 H 110/66 98 Room Air 07/19/22 12:03 36.0 C L 62 H 94/62 L 96 Room Air 07/19/22 07:49 36.7 C 68 18 93/58 L 95 Room Air Laboratory Results Short CBC 07/19/22 Range/Units 06:20 WBC 4.88 (4.8-10.8) K/ul Hgb 10.4 L (12.0-16.0) g/dl Hct 31.7 L (34.1-44.9) % Plt Count 205 (130-400) K/uL BMP 07/19/22 06:20 Sodium 138 Potassium 3.7 Chloride 111 H Carbon Dioxide 24 BUN 8 Creatinine 0.65 Glucose 87 Calcium 8.0 L Diagnostic Findings Retrograde Pyelogram 07/19/22 12:00 INTRAOPERATIVE RADIOGRAPH CLINICAL HISTORY: Right ureteral stent placement. Fluoroscopy time: 7 seconds. FINDINGS: A single spot fluoroscopic image of the right upper quadrant is correlated with renal ultrasound dated 07/18/2022. Contrast within the right pelvis shows mild fullness of the collecting system. The proximal end of a right ureteral stent is in appropriate position. IMPRESSION: Intraoperative image from a right ureteral stent placement procedure as above. Electronically signed by: Kimani Mcdonnell M.D. 07/19/2022 12:24 PM Medications Administered Current Inpatient Medications Acetaminophen (Acetaminophen 325 Mg Tab) 650 mg PO Q6H PRN PRN Reason: Mild Pain Stop: 08/17/22 16:39 Last Admin: 07/19/22 03:06 Dose: 650 mg Fluoxetine HCl (Fluoxetine Hcl 20 Mg Cap) 20 mg PO DAILY ERENDIRA Stop: 08/18/22 08:59 Last Admin: 07/19/22 08:14 Dose: 20 mg Sodium Chloride (Nss 1000ml) 1,000 mls @ 125 mls/hr IV .Q8H ERENDIRA Stop: 08/17/22 16:39 Last Infusion: 07/19/22 12:41 Dose: 125 mls/hr Ketorolac Tromethamine (Ketorolac Tromethamine 15 Mg/Ml Vial) 15 mg IV Q6H PRN PRN Reason: moderate to severe Pain Stop: 07/23/22 16:39 Last Admin: 07/18/22 17:15 Dose: 15 mg Ondansetron HCl (Ondansetron Inj 2 Mg/Ml 2 Ml Vial) 4 mg IV Q6H PRN PRN Reason: Nausea And Vomiting Stop: 08/17/22 16:39 Phenazopyridine HCl (Phenazopyridine Hcl 200 Mg Tab) 200 mg PO TID PRN PRN Reason: Dysuria Stop: 08/18/22 15:59 Tamsulosin HCl (Tamsulosin Hcl 0.4 Mg Cap) 0.4 mg PO HS ERENDIRA Stop: 08/17/22 20:59 Last Admin: 07/18/22 20:31 Dose: 0.4 mg
[2022-07-19] MEDS ORDERED: PHENAZOPYRIDINE HCL 200 MG TAB PO PRN (16:00)
[2022-07-19] MEDS: TAMSULOSIN HCL 0.4 MG CAP PO SCH (21:14)
[2022-07-20 07:20] LABS: Hematocrit (blood only) 30.6 % (34.1-44.9); Hemoglobin 10.2 g/dl (12.0-16.0); Mean Corpuscular Hemoglobin 30.4 pg (25.0-34.0); Mean Corpuscular Hgb Conc 33.3 g/dL (32.0-36.0); Mean Corpuscular Volume 91.3 fL (80.0-100.0); Mean Platelet Volume 12.3 fL (9.4-12.3); Platelet Count 213 K/uL (130-400); RDW Coefficient of Variation 14.1 % (11.5-14.5); RDW Standard Deviation 46.9 fL (36.4-46.3); Red Blood Count 3.35 M/uL (3.93-5.22); White Blood Count 6.39 K/ul (4.8-10.8)
[2022-07-20 07:56] LABS: BUN Creatinine Ratio 14.3 (10-20); Creatinine Clr Calc Pharmacy 97.8 ml/min; Potassium 3.8 mmol/L (3.5-5.1)
--- NOTE | 2022-07-20 07:59 | Urology Progress Note ---
Date of Service July 20, 2022 Assessment & Plan (1) Hydronephrosis with renal and ureteral calculous obstruction: Plan: 32-year-old female admitted for right flank pain secondary to a 9 mm obstructing proximal ureteral calculus with hydronephrosis. - Pt POD#1 s/p cystoscopy and right ureteral stent placement - Doing well, progressing as expected - Afebrile, lab work reviewed - creatinine 0.70, WBC 6.39 - Tolerating right ureteral stent with minimal bother this morning - Okay to d/c from perspective when medically stable - Recommend d/c with Tamsulosin, prn Pyridium, and prn Oxybutynin for stent management - Expected clinical course reviewed, all questions answered - Will arrange outpatient follow-up with our service to discuss definitive stone management Admission and Anticipated Discharge Date Admission Date: July 18, 2022 Subjective Patient seen and examined at bedside this AM. She is awake and sitting up in b ed eating breakfast. No acute issues overnight. She reports bladder discomfort and dysuria yesterday post procedure, but improved this AM. Today she notes "crampy discomfort" in abdomen, but tolerable. She is voiding without difficulty. No fever or chills. Tolerating PO diet. No nausea or vomiting. Review of Systems Constitutional: as per Subjective / HPI Gastrointestinal: as per Subjective / HPI Genitourinary: as per Subjective / HPI Physical Exam Constitutional: well developed and well nourished; no acute distress and not ill appearing Respiratory: normal respiratory effort; no respiratory distress and no labored breathing Cardiovascular: Extremities: no pedal edema Gastrointestinal (Abdomen): Inspection/Auscultation: abdomen normal to inspection; abdomen not distended Musculoskeletal: Head/Neck/Chest: normocephalic and head atraumatic Skin: warm and dry, no rashes to exposed skin Neurologic: moves all extremities and awake Psychiatric: Orientation: alert and oriented x 3 Results & Data ([facility]) Vital Signs (Past 12 Hours) Vital Signs Temp Pulse Resp BP Pulse Ox O2 Del Method 07/20/22 07:50 36.6 C 66 16 97/60 L 95 Room Air PG Care Time/CCT Total # of Minutes Spent Total Time Spent with Patient: Total time spent is greater than 50% in coordination of care (as documented) at patient's floor/unit and/or counseling patient: Coding Level of Care Code None Diagnoses Hydronephrosis with renal and ureteral calculous obstruction N13.2
[2022-07-20] MEDS: KETOROLAC TROMETHAMINE 15 MG/ML VIAL IV PRN (08:14)
[2022-07-20] MEDS: FLUoxetine HCL 20 MG CAP PO SCH (08:18)
--- NOTE | 2022-07-20 12:32 | Discharge Summary ---
Discharge Summary Date of Service July 20, 2022 Notes For Next Care Provider Post op follow-up after right ureteral stent placement Medication Changes From Visit Oxybutinin 5mg q12h PRN spasms Pyridium 200mg PO TID PRN spasms Naproxen 500mg PO q12h PRN mod-sev pain Tamsulosin 0.4mg PO daily Admission HPI Per Admitting Provider 32 yo Female with PMH of migraine, kidney stone required procedure in the past, anxiety and depression present to ER with severe pain located in the right lower abdomen that radiated across and above the suprapubic area. Pt said that she was in her normal state when she developed severe abdominal pain around 1 pm. She said that she also have tenderness in the lower right border of her back. She said that she felt nauseated and vomiting today. She described the pain as a cramping feeling, constant and 6/10 intensity. She said that she received morphine in the ER that did not provide any relief, but the IV toradol helped. She said that she had kidney stone in the past that required lithotripsy in the past. Denies any fever, chills, diarrhea, dysuria, hematuria, palpitation, SOB and chest pain. Admission Exam Per Admitting Provider Physical Exam: General- No acute distress Head- atraumatic Eyes- PERRL, EOMI, ENT- oropharynx clear Neck- supple, no JVD Lungs- clear to auscultation Heart- regular rhythm; no murmur Abdomen/Pelvis- + RL abdominal pain/ hypogastric pain, +R flank pain with palpation Extremities- no calf tenderness Neuro- alert, oriented x 3; PERRL, EOMI; no facial palsy; no dysarthria Skin- warm & dry Principal Dx & Hospital Course #1 = Principal Diagnosis (1) Hydronephrosis with renal and ureteral calculous obstruction: Patient with a history of kidney stone that required lithotripsy in the past. She has now right-sided hydroureteronephrosis secondary to an obstructing 9 mm calculus in the proximal right ureter along with right nephrolithiasis. Urology was consulted and stented her right ureter this morning Postoperatively she is experiencing significant suprapubic burning Will give trial of Pyridium and 1 dose of Toradol now If not improved will add BNO suppository as needed Discussed with bedside RN Continue Flomax daily Plan to monitor in the hospital until symptoms are improved. (2) Hypokalemia: The patient is a 32-year-old female who presented with hydroureteronephrosis secondary to ureteral stone on the right. She was started on IV fluids and given pain medication as needed. Flomax was started daily and urology was consulted. She underwent right ureteral stent placement on 07/[address] Pelon Crawley. Postoperatively she suffered postoperative stent pain which was relieved with Pyridium. She stayed in the hospital overnight and at time of discharge her pain was resolved. At time of discharge she was feeling well and tolerating solid food. She was ambulating at baseline. [facility] [place] instructed her about follow-up plans for definitive stone management. She was given Pyridium, oxybutynin, naproxen, tamsulosin at time of discharge. She was discharged in stable condition with close primary care follow-up recommended which was schedu led for her prior to discharge. Discharge Exam CONSTITUTIONAL: WNWD, vitals as above, generally appears in moderate distress 2/2 pain, eyes closed, lying supine in bed. EYES: normal conjunctivae, no scleral icterus ENT: external ear and nose normal, MMM NECK: trachea midline RESPIRATORY: clear to auscultation bilaterally, no crackles, rales or wheezes, normal respiratory effort CARDIOVASCULAR: regular rate and rhythm, S1 and 2 heard without murmurs, gallops or rubs, no JVD, no peripheral edema CHEST: inspection of chest was normal GASTROINTESTINAL: soft, nontender, ND, no guarding MUSCULOSKELETAL: strength 5/5 throughout, head is normocephalic and atraumatic SKIN: warm and dry NEUROLOGIC: CN 2-12 grossly intact, no sensory deficit, normal cognition, normal speech, no tremor PSYCHIATRIC: alert cooperative and oriented to person, place and time. Euthymic mood, makes good eye contact, language grossly intact, recent and re mote memory grossly intact. Updated Medication List Medication Instructions Recorded Confirmed Type fluoxetine 20 mg capsule (Prozac) 20 mg PO DAILY 10/24/20 07/18/22 History rizatriptan 10 mg tablet See Rx Instructions PO .COMPLEX #9 01/22/21 07/18/22 Rx tabs naproxen 500 mg tablet 500 mg PO Q12H PRN moderate to 07/20/22 Rx severe pain #20 tabs oxybutynin chloride 5 mg tablet 5 mg PO Q12H PRN stent pain/spasms 07/20/22 Rx #20 tabs phenazopyridine 200 mg tablet 200 mg PO TID PRN bladder spasms 07/20/22 Rx (Pyridium) #30 tabs tamsulosin 0.4 mg capsule 0.4 mg PO HS #30 caps 07/20/22 Rx Hospital Stay Data Consultations 07/18/22 14:31 ED Decision to Admit Stat 07/18/22 16:40 Consult Urology Routine Procedures Performed Operation Date: 07/19/22 10:00 Actual Procedures p Cystoscopy, Retrograde pyelogram, ureteral stent placement on right side(Right) - Pelon Crawley MD Diagnostic Imagining Performed 07/18/22 12:12 US pelvic complete Stat US renal/blad retro comp Stat 07/19/22 12:00 FL retrograde includes kub Routine Pending Results Patient Have Any Pending Studies at Discharge: No Discharge Instructions Given to Patient (Per Discharging Provider) Please take all medications as instructed on discharge as below. It is recommended that you follow-up with your primary care doctor after hospitalization to ensure you are still doing well after returning home, and to provide refills for any medications that you may need. Please follow all postoperative instructions per urology as instructed below. You should continue taking tamsulosin every day until your urologist takes you off of this. You will also be given Pyridium to use as needed for bladder spasms. Please note this medication will turn your urine bright orange and will stain your underwear. You will also be given oxybutynin in case of flank pain. This medication may give you dry mouth. It was a pleasure taking care of you! Please call if you have any questions or problems. You can reach a [facility] hospitalist on duty at [facility] 24 hours a day by calling [phone]. Take care of yourself. Margarita Smith, [facility]ist Total Time Total Time Spent Total Time Spent (In Minutes): 60
== END 2022-07-20 14:12 | disposition home or self-care (01) | DRG 661 ==
LOC: ED 11:43 → 3N 14:56 → SUATTDRO 14:56 → 3N 16:25